=== PATIENT | male | born 1995 ===

== ENCOUNTER 2017-11-20 06:45 | Emergency (ER) | payer OTHER ==
[2017-11-20 06:58] VITALS: BP 123/72; PULSE 86; RESP 20; TEMP 100.9; O2SAT 96
[2017-11-20] MEDS ORDERED: Naproxen 550 mg Tab PO STA (07:20)
--- NOTE | 2017-11-20 07:24 | C.PDOC ---
History Of Present Illness 22 year old male presents to ED for evaluation of sore throat and fever since yesterday. He denies cough, congestion, runny nose, body aches, rashes, or any other symptoms. Time Seen by Provider: 11/20/17 07:15 Chief Complaint (Nursing): ENT Problem History Per: Patient History/Exam Limitations: None Onset/Duration Of Symptoms: Days (1) Current Symptoms Are (Timing): Still Present Symptoms Have Been: Continuous Severity: Mild Past Medical History Reviewed: Historical Data, Nursing Documentation, Vital Signs Vital Signs: Last Vital Signs Temp 100.9 F H 11/20/17 06:55 Pulse 86 11/20/17 06:55 Resp 20 11/20/17 06:55 BP 123/72 11/20/17 06:55 Pulse Ox 96 11/20/17 09:26 - Medical History PMH: No Chronic Diseases Family History: States: No Known Family Hx - Social History Hx Alcohol Use: No Hx Substance Use: No - Immunization History Hx Tetanus Toxoid Vaccination: No Hx Influenza Vaccination: No Hx Pneumococcal Vaccination: No Review Of Systems Constitutional: Positive for: Fever ENT: Positive for: Throat Pain. Negative for: Ear Pain, Nose Congestion Cardiovascular: Negative for: Chest Pain, Palpitations Respiratory: Negative for: Cough, Shortness of Breath Skin: Negative for: Rash Neurological: Negative for: Headache Physical Exam - Physical Exam Appears: Well, Non-toxic, Other (in mild discomfort) Skin: Normal Color, Warm, Dry, No Rash Head: Normacephalic Eye(s): bilateral: Normal Inspection Ear(s): Bilateral: Normal Nose: Normal Oral Mucosa: Moist Tongue: Normal Appearing, No Swelling Lips: Normal Appearing, No Swelling Throat: Erythema, Exudate, No Drooling, Other (tonsil swelling; uvula midline and normal in appearance ) Neck: Supple Lymphatic: No Adenopathy Cardiovascular: Rhythm Regular, Murmur (3/6 holosystolic) Respiratory: Normal Breath Sounds, No Rales, No Rhonchi, No Wheezing, Other ( speaking in full sentences) Gastrointestinal/Abdominal: Normal Exam, Bowel Sounds, Soft, No Tenderness Neurological/Psych: Oriented x3 ED Course And Treatment O2 Sat by Pulse Oximetry: 96 (RA) Pulse Ox Interpretation: Normal Progress Note: Pt given PO Amoxicillin and Naproxen and Rxs for same. He was instructed to follow up with cardiology for further evaluation of his murmur, and to follow up with PMD/clinic in 1-2 days. He understands he should return to ED if symptoms worsen. Disposition Counseled Patient/Family Regarding: Diagnosis, Need For Followup, Rx Given - Disposition Referrals: Jason Small MD [Staff Provider] - [facility] [Outside] Disposition: HOME/ ROUTINE Disposition Time: 07:25 Condition: STABLE Additional Instructions: FOLLOW UP WITH YOUR DOCTOR/CLINIC IN 1-2 DAYS FOLLOW UP WITH CARDIOLOGY WITHIN 1-2 WEEKS FOR FURTHER EVALUATION OF YOUR MURMUR RETURN TO ER IF YOU HAVE ANY CONCERNING SYMPTOMS Prescriptions: Amoxicillin 875 mg PO BID #14 tab Naproxen 375 mg PO BID PRN #20 tablet PRN Reason: pain Phenol/Glycerin [Chloraseptic Max Derry] 1 spray MM Q6 PRN #1 spray PRN Reason: THROAT PAIN Forms: [employer] (Turkmen) Print Language: [place] KOREAN - Clinical Impression Clinical Impression: Pharyngitis, Acute bacterial tonsillitis - Scribe Statement The provider has reviewed the documentation as recorded by the Eric Aponte All medical record entries made by the Eric were at my direction and personally dictated by me. I have reviewed the chart and agree that the record accurately reflects my personal performance of the history, physical exam, medical decision making, and the department course for this patient. I have also personally directed, reviewed, and agree with the discharge instructions and disposition.
[2017-11-20] MEDS ORDERED: Naproxen 550 mg Tab PO ONE (07:28)
[2017-11-20] MEDS ORDERED: Amoxicillin-Clav 500-125 mg Tab PO ONE (07:29)
== END 2017-11-20 08:00 | disposition home or self-care (01) ==
LOC: C.ER 06:45
DX: J03.90 Acute tonsillitis, unspecified (principal)